=== PATIENT | female | born 1985 | race African-American/Black ===

== ENCOUNTER 2018-07-01 10:38 | Emergency (ER) | payer OTHER ==
[~2018-07-01] VITALS: Ht 160 cm; Wt 65.0 kg
--- NOTE | 2018-07-01 11:14 | NUR ---
First contact with pt. Pt presents to ED with c/o nausea and vomitting over past 24 hours. Pt denies diarrhea. Pt states, "It hurts at the bottom of my stomach, like I need to keep throwing up but there is nothing left but yellow stuff." Pt is AOX4, family member at bedside. No acute distress noticed. Pt has unlabored respirations equal bilaterally. Pt connected to NIBP and continous pulse ox. Pt laughing and talking with ED MD at bedside. All safety measures in place. Call light within reach.
[2018-07-01] MEDS ORDERED: ONDANSETRON ODT 4 MG ONE (11:21)
[2018-07-01] MEDS ORDERED: MAALOX/HYOSCYAMINE/LIDOCAINE 45 ML BTL ONE (11:22)
--- NOTE | 2018-07-01 11:23 | NUR ---
Pt ambulates to restroom with steady gait and balance. No defecits observed.
[2018-07-01] MEDS ORDERED: ONDANSETRON ODT 8 MG PO ONE (11:30)
[2018-07-01] MEDS ORDERED: MAALOX/HYOSCYAMINE/LIDOCAINE 45 ML BTL PO ONE (11:30)
--- NOTE | 2018-07-01 11:36 | NUR ---
Provided pt medication per EMAR. Sent pt's urine to lab.
[2018-07-01 11:45] LABS: BASOPHILS # (AUTO) 0.05 x10^3/uL (0-0.1); BASOPHILS % (AUTO) 1 % (0-1); EOSINOPHILS # (AUTO) 0.01 x10^3/uL (0-0.4); EOSINOPHILS % (AUTO) 0 % (1-7); LYMPHOCYTES # (AUTO) 1.56 x10^3/uL (1-3.4); LYMPHOCYTES % (AUTO) 22 % (22-44); MD NO; MEAN CORPUSCULAR HEMOGLOBIN 32.3 pg (27.0-34.8); MEAN CORPUSCULAR HGB CONC 33.3 g/dL (32.4-35.8); MEAN CORPUSCULAR VOLUME 96.9 fL (80-100); MEAN PLATELET VOLUME 8.1 fL (7.4-10.4); MONOCYTES # (AUTO) 0.39 x10^3/uL (0.2-0.8); MONOCYTES % (AUTO) 5 % (2-9); NEUTROPHILS # (AUTO) 5.22 x10^3/uL (1.8-6.8); NEUTROPHILS % (AUTO) 72 % (42-75); PLATELET COUNT 268 x10^3/uL (130-400); RED BLOOD COUNT 4.27 x10^6/uL (3.82-5.3); RED CELL DISTRIBUTION WIDTH 14.2 % (9.6-15.2)
[2018-07-01 11:57] LABS: ALANINE AMINOTRANSFERASE 17 U/L (12-78); ALBUMIN 3.9 g/dL (3.4-5.0); ANION GAP 7 mmol/L (5-15); CALCIUM 8.6 mg/dL (8.5-10.1); CHLORIDE 107 mmol/L (98-107); CREATININE 0.79 mg/dL (0.55-1.02)
[2018-07-01 12:02] LABS: ALKALINE PHOSPHATASE 58 U/L (45-117); BILIRUBIN,TOTAL 0.5 mg/dL (0.2-1.0); TOTAL PROTEIN 7.6 g/dL (6.4-8.2)
[2018-07-01 13:31] VITALS: BP 120/83
== END 2018-07-01 13:33 | disposition home or self-care (01) ==
LOC: ED 11:52
DX: R10.84 Generalized abdominal pain (principal); R11.2 Nausea with vomiting, unspecified; F17.200 Nicotine dependence, unspecified, uncomplicated
CPT/HCPCS: 36415; 80053; 83690; 84703; 85025; 99283; Q0162